=== PATIENT | female | born 1950 | race Caucasian/White ===

== ENCOUNTER 2017-03-04 15:28 | Emergency (ER) | payer MEDICARE ==
[2017-03-04] MEDS ORDERED: Naproxen 550 mg Tab PO STA (16:28)
[2017-03-04] MEDS ORDERED: Naproxen 550 mg Tab PO ONE (16:36)
--- NOTE | 2017-03-04 16:47 | C.PDOC ---
Time Seen by Provider: 03/04/17 16:21 Chief Complaint (Nursing): Lower Extremity Problem/Injury Past Medical History Vital Signs: Last Vital Signs Temp 98.4 F 03/04/17 15:49 Pulse 65 03/04/17 15:49 Resp 18 03/04/17 15:49 BP 113/66 03/04/17 15:49 Pulse Ox 99 03/04/17 15:49 - Medical History PMH: Hypothyroidism, Rheumatoid Arthritis - Social History Hx Alcohol Use: No Hx Substance Use: No - Immunization History Hx Tetanus Toxoid Vaccination: No Hx Influenza Vaccination: No Hx Pneumococcal Vaccination: No ED Course And Treatment O2 Sat by Pulse Oximetry: 99 Disposition Counseled Patient/Family Regarding: Diagnosis, Need For Followup - Disposition Disposition: HOME/ ROUTINE Disposition Time: 16:45 Condition: STABLE Additional Instructions: Follow up with your doctor, the product assurance engineer of your choice, or follow up in clinic and request a podiatry appointmnt. TRake the Naprosyn or Alive but not both. Prescriptions: Naproxen [Naprosyn] 1 tab PO BID PRN #25 tab PRN Reason: Pain Instructions: Plantar Fasciitis (ED) Forms: General Discharge Instructions - POA Present On Arrival: None - Clinical Impression Clinical Impression: Plantar fasciitis
[2017-03-04 17:02] VITALS: BP 108/59; PULSE 70; RESP 20; TEMP 98.5; O2SAT 98
== END 2017-03-04 17:02 | disposition home or self-care (01) ==
LOC: C.ER 15:28
DX: M72.2 Plantar fascial fibromatosis (principal); M06.9 Rheumatoid arthritis, unspecified; E03.9 Hypothyroidism, unspecified

== ENCOUNTER 2017-04-15 07:38 | Day surgery (SDC) | payer MEDICARE ==
[2017-04-15 08:14] VITALS: BMI 31.4
--- NOTE | 2017-04-15 09:22 | CP.SDSHP ---
Same Day Surgery H & P - History Proposed Procedure: Screening colonoscopy - Previous Medical/Surgical History Endocrine/Metabolic: Thyroid Disease Comments: Rheumatoid arthritis Previous Surgical History: Tubal ligation - Allergies Allergies: Allergies acetaminophen [From Ultracet] Allergy (Intermediate, Verified 04/15/17 08:14) DIZZINESS UNCONTROLLABLE SHAKING tramadol [From Ultracet] Allergy (Intermediate, Verified 04/15/17 08:14) DIZZINESS UNCONTROLLABLE SHAKING - Current Medications Current Medications: See reconciliation sheet - Physical Exam General Appearance: WD WN female in NAD Vital Signs: Vital Signs 04/15/17 08:16 Temperature 97.5 F L Pulse Rate 72 Respiratory 19 Rate Blood Pressure 119/47 L O2 Sat by Pulse 99 Oximetry Mental Status: Alert & Oriented x3 Neuro: WNL Heart: WNL Lungs: WNL GI: WNL - {Optional Preform as Required} Abdomen: WNL - Impression Impression: Screening for colorectal cancer Pt. Evaluated Today:Candidate for Anesthesia & Procedure: Yes - Date & Time Date: 04/15/17 Time: 09:22 Short Stay Discharge - Short Stay Discharge Admitting Diagnosis/Reason for Visit: ENCOUNTER FOR SCREENING FOR MALIGNANT NEOPLASM OF Disposition: HOME/ ROUTINE
[2017-04-15] MEDS ORDERED: Lactated Ringer's 500 ML IV ONE (09:30)
[2017-04-15] MEDS ORDERED: Propofol 10 mg/ml Inj (20 ML) ONE (09:31)
[2017-04-15 10:29] VITALS: TEMP 97.8
[2017-04-15 11:18] VITALS: BP 117/63; PULSE 69; RESP 19; O2SAT 99
== END 2017-04-15 11:15 | disposition home or self-care (01) ==
LOC: C.ENDO 07:38
PROVIDERS: ATTEND Internal Medicine Gastroenterology
DX: K57.90 Diverticulosis of intestine, part unspecified, without perforation or abscess without bleeding (principal); K64.8 Other hemorrhoids
CPT/HCPCS: 45378; J2001; J2704; J7120

== ENCOUNTER 2018-11-27 14:18 | Emergency (ER) | payer MEDICARE ==
[2018-11-27 14:18] VITALS: BMI 31.4
[2018-11-27 14:30] VITALS: O2SAT 94
[2018-11-27] MEDS ORDERED: Albuterol-Ipratrop 3 mg / 0.5 (3 ml) UD INH STA (14:49)
[2018-11-27] MEDS ORDERED: Albuterol-Ipratrop 3 mg / 0.5 (3 ml) UD ONE (14:58)
--- NOTE | 2018-11-27 15:45 | C.PDOC ---
History Of Present Illness 68 y/o female presents to the ER complaining of cough which has been present for the past 5-6 days becoming worse over the past 1-2 days. Patient states that she has associated weakness and lethargy. Patient reports that she is taking Promethazine for cough. She states that she has sick contacts. She notes that her was recently diagnosed with pneumonia and he is currently admitted in [facility]. 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 Denies having fever,chills, CP,SOB, and abdominal pain. Chief Complaint (Nursing): Flu-like Symptoms History Per: Patient History/Exam Limitations: no limitations Onset/Duration Of Symptoms: Days Current Symptoms Are (Timing): Still Present Severity: Moderate Past Medical History Reviewed: Historical Data, Nursing Documentation, Vital Signs Vital Signs: Last Vital Signs Temp 98.2 F 11/27/18 14:27 Pulse 97 H 11/27/18 14:27 Resp 18 11/27/18 14:27 BP 113/71 11/27/18 14:27 Pulse Ox 94 L 11/27/18 14:27 - Medical History PMH: Arthritis (FEET), Hypothyroidism, Osteoporosis (OSTEOPENIA), Rheumatoid Arthritis Denies: Colonic Polyps, Fractures, TIA Surgical History: Denies: Endoscopy Family History: States: No Known Family Hx - Social History Hx Tobacco Use: No Hx Alcohol Use: No Hx Substance Use: No - Immunization History Hx Tetanus Toxoid Vaccination: No Hx Influenza Vaccination: No Hx Pneumococcal Vaccination: No Review Of Systems Constitutional: Positive for: Weakness. Negative for: Fever, Chills Cardiovascular: Negative for: Chest Pain Respiratory: Positive for: Cough. Negative for: Shortness of Breath Gastrointestinal: Negative for: Nausea, Vomiting, Abdominal Pain Physical Exam - Physical Exam Appears: Non-toxic, No Acute Distress Skin: Normal Color, Warm, Dry Head: Atraumatic, Normacephalic Eye(s): bilateral: Normal Inspection Ear(s): Bilateral: Normal Nose: Normal Oral Mucosa: Moist Neck: Supple Chest: Symmetrical Cardiovascular: Rhythm Regular Respiratory: No Rales, Rhonchi, Wheezing (wheezing on left side) Gastrointestinal/Abdominal: Normal Exam, Soft, No Tenderness, No Guarding, No Rebound Neurological/Psych: Oriented x3, Normal Speech ED Course And Treatment - Laboratory Results Result Diagrams: 11/27/18 16:40 11/27/18 16:40 O2 Sat by Pulse Oximetry: 94 (RA) Pulse Ox Interpretation: Normal - Other Rad chest xray X-Ray: Viewed By Me, Read By Radiologist Interpretation: Accession No. : [id number]. Patient Name / ID : GIULIA EMMANUEL / [id number]. Exam Date : 11/27/2018 15:27:16 ( Approved ). Study Comment : Sex / Age : F / 68Y. Creator : Janice Taveras MD. Dictator : Janice Taveras MD. Search Engine Optimization Manager : Human Resources District Manager : Janice Taveras MD. Approver2 : Report Date : 11/27/2018 15:48:25. My Comment : . Date of service: 11/27/2018. HISTORY: Evaluate for pneumonia. COMPARISON: No prior. TECHNIQUE: Chest PA and lateral. FINDINGS: LINES AND TUBES: None. LUNG AND PLEURA: The lungs are hyperinflated and there is peribronchial thickening with chronic changes in both lungs. There are extensive fibrotic changes in the right upper lobe and to a lesser extent the left upper lobe. There is probable interstitial fibrosis and bronchiectasis in the right upper lobe and left lower lobe. There are no pleural effusions or pneumothorax. HEART AND MEDIASTINUM: The heart is not enlarged. No aortic atherosclerotic calcifications present. The hilar and mediastinal contours are within normal limits. SKELETAL STRUCTURES: The bony structures are within normal limits for the patient's age. VISUALIZED UPPER ABDOMEN: Normal. OTHER FINDINGS: None. IMPRESSION: No active pulmonary disease. Background of COPD and probable interstitial pulmonary fibrosis and p robable bronchiectasis, worse in the right upper lobe or left lower lobe. Medical Decision Making Medical Decision Making: Plan: --Labs-- unremarkable --Duoneb given; not improved. Albuterol given- wheezing improved --CXR- probable bronchiectasis --D/w patient results of CXR and plan to treat with antibiotics --Rocephin IV given prophylactically --Start Zpac as directed --Start Tessalon perles three times a day as needed for cough --Albuterolo for cough/sob --stop promethazine --rest and hydration --patient verbalized understanding and is in agreement with plan --patient is stable for discharge Disposition Counseled Patient/Family Regarding: Studies Performed, Diagnosis, Need For Followup, Rx Given - Disposition Referrals: Ian Cr MD [Staff Provider] - Disposition: HOME/ ROUTINE Disposition Time: 17:20 Condition: IMPROVED Additional Instructions: Start Zpac as directed Start Tessalon perles three times a day as needed for cough Albuterolo for cough/sob stop promethazine rest and hydration follow up with pmd in 1-2 days return to ED if symptoms worsen Prescriptions: Albuterol HFA [Ventolin HFA 90 mcg/actuation (8 g)] 2 puff IH [id number] PRN #1 inhaler PRN Reason: Shortness Of Breath Azithromycin [Z-Orville] 250 mg PO DAILY #4 tab Benzonatate [Tessalon Perles] 100 mg PO TID #30 sgl Instructions: Bronchiectasis in Adults Forms: [employer] ([place]) - Clinical Impression Clinical Impression: Bronchiectasis, Cough - PA / INTERNAL MEDICINE SPECIALIST / Resident Statement MD/DO has reviewed & agrees with the documentation as recorded. - Scribe Statement The provider has reviewed the documentation as recorded by the Josefaibzac White Provider Attestation All medical record entries made by the Scribe were at my direction and personally dictated by me. I have reviewed the chart and agree that the record accurately reflects my personal performance of the history, physical exam, medical decision making, and the department course for this patient. I have also personally directed, reviewed, and agree with the discharge instructions and disposition.
--- NOTE | 2018-11-27 15:52 | RAD ---
Date of service: 11/27/2018 HISTORY: Evaluate for pneumonia COMPARISON: No prior. TECHNIQUE: Chest PA and lateral FINDINGS: LINES AND TUBES: None. LUNG AND PLEURA: The lungs are hyperinflated and there is peribronchial thickening with chronic changes in both lungs. There are extensive fibrotic changes in the right upper lobe and to a lesser extent the left upper lobe. There is probable interstitial fibrosis and bronchiectasis in the right upper lobe and left lower lobe. There are no pleural effusions or pneumothorax. HEART AND MEDIASTINUM: The heart is not enlarged. No aortic atherosclerotic calcifications present. The hilar and mediastinal contours are within normal limits. SKELETAL STRUCTURES: The bony structures are within normal limits for the patient's age. VISUALIZED UPPER ABDOMEN: Normal. OTHER FINDINGS: None. IMPRESSION: No active pulmonary disease. Background of COPD and probable interstitial pulmonary fibrosis and probable bronchiectasis, worse in the right upper lobe or left lower lobe.
[2018-11-27] MEDS ORDERED: cefTRIAXone 1 gm in Water For Injection 2.1 ML IM ONE (16:16)
[2018-11-27] MEDS ORDERED: cefTRIAXone IV 1 gm in Dextros 50 ML IVPB STA (16:24)
[2018-11-27 16:45] LABS: BASO # 0.1 K/uL (0.0-0.2); BASO % 0.9 % (0.0-2.0); EOS # 0.1 K/uL (0.0-0.7); EOS % 0.9 % (0.0-4.0); HEMOGLOBIN 12.1 g/dL (11.0-16.0); LYMPH # 2.4 K/uL (1.0-4.3); LYMPH % 31.6 % (20.0-40.0); MEAN CELL VOLUME 87.6 fL (81.0-99.0); MEAN CORPUSCULAR HEMOGLOBIN 28.8 pg (27.0-31.0); MEAN CORPUSCULAR HGB CONC 32.9 g/dL (33.0-37.0); MEAN PLATELET VOLUME 8.7 fL (7.2-11.7); MONO % 12.8 % (0.0-10.0); NEUT % 53.8 % (50.0-75.0); RBC 4.18 Mil/uL (3.80-5.20); RED CELL DISTRIBUTION WIDTH 12.9 % (11.5-14.5); WHITE BLOOD COUNT 7.4 K/uL (4.8-10.8)
[2018-11-27 17:03] LABS: ALBUMIN 4.1 g/dL (3.5-5.0); ALT/SGPT 11 U/L (9-52); AST/SGOT 33 U/L (14-36); BLOOD UREA NITROGEN 12 mg/dL (7-17); GFR NON-AFRICAN AMERICAN > 60
[2018-11-27 17:33] VITALS: BP 118/78; PULSE 83; RESP 20; TEMP 98.6
[2018-11-27] MEDS ORDERED: Albuterol 0.083% Inhal Sol (2.5 mg/3 mL) UD INH STA (17:35)
[2018-11-27] MEDS ORDERED: Albuterol 0.083% Inhal Sol (2.5 mg/3 mL) UD ONE (17:40)
== END 2018-11-27 18:03 | disposition home or self-care (01) ==
LOC: C.ER 14:18
DX: J47.9 Bronchiectasis, uncomplicated (principal); R05 Cough; M06.9 Rheumatoid arthritis, unspecified; E03.9 Hypothyroidism, unspecified
CPT/HCPCS: 71046; 80053; 85025; 94640; 96365; 99283; J0696